=== PATIENT | female | born 2000 | race Caucasian/White ===

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

== ENCOUNTER 2018-02-09 16:27 | Outpatient (CLI) | END 2018-02-09 16:28 | disposition home or self-care (01) | LOC: CAR 16:27 | PROVIDERS: ATTEND Physician Assistant | DX: R42 Dizziness and giddiness (principal) | CPT/HCPCS: 93005; 93010 ==

== ENCOUNTER 2018-02-22 12:57 | Outpatient (CLI) ==
--- NOTE | 2018-02-25 12:12 | HOLTER ---
PATIENT INFORMATION AND COMMENTS Attending Physician: DEBRA COLLIER APRN Indications: DIZZINESS __ Patient Medications: CONTROL SHOTS __ Pre-procedure Summary: Protocol: Standard Heart Rate Started: 02/22/18 1322 Minimum: 47 BPM Weight: 245 LBS Ended: 02/23/18 1322 Maximum: 154 BPM Height: 66" Duration: 24 HOURS Average: 83 BPM _ INTERPRETATIONS/OBSERVATIONS: 1. BASIC RHYTHM: SINUS, RATE 47 BPM TO 150 BPM, AVERAGE 80 BPM 2. RARE PAC'S AND PVC'S 3. TWO SHORT RUNS OF PAT/SVT--4 TO [address]-T WAVE CHANGES FROM BASELINE 5. ACTIVITY LOG-- NO CORRELATION WITH DIZZINESS MTDD
== END 2018-02-22 12:58 | disposition home or self-care (01) ==
LOC: CAR 12:57
PROVIDERS: ATTEND Physician Assistant
DX: R42 Dizziness and giddiness (principal)
CPT/HCPCS: 93227

== ENCOUNTER 2018-07-17 22:27 | Emergency (ER) ==
[2018-07-17 22:40] VITALS: BP 150/88; TEMP 98.8; BMI 42.3
[2018-07-17] MEDS ORDERED: DECADRON 4 MG/ML SDV IM STA (22:48)
[2018-07-17] MEDS ORDERED: BENADRYL IM STA (22:48)
--- NOTE | 2018-07-17 22:51 | ED.PDOC ---
General ED Provider: Dr. ERASMO MANUEL-ER Chief Complaint: Rash Stated Complaint: jorgito got this rash Time Seen by Physician: 22:49 Mode of Arrival: Walk-In Information Source: Patient Exam Limitations: No limitations Primary Care Provider: SHANTEL SANTILLAN Nursing and Triage Documentation Reviewed and Agree: Yes Does patient meet sepsis criteria?: No System Inflammatory Response Syndrome: Not Applicable Sepsis Protocol: For patient's 13 years and over: Temp is 96.8 and below OR 101 and greater Pulse >90 BPM Resp >20/minute Acutely Altered Mental Status Are patient's symptoms suggestive of a new infection, such as: -Pneumonia -Skin, Soft Tissue -Endocarditis -UTI -Bone, Joint Infection -Implantable Device -Acute Abdominal Infection -Wound Infection -Meningitis -Blood Stream Catheter Infection -Unknown Skin Complaint Exam - Skin Rash/Itching Complaint/Exam Onset/Duration: a few hours Symptoms Are: Still present Initial Severity: Mild Current Severity: Mild Location: arms and anterior thighs Potential Exposures: Reports: Unknown Aggravating: Reports: None Alleviating: Reports: None Associated Signs and Symptoms: Denies: Difficulty breathing, Fever, Chills Skin Findings: Present: Lesions Differential Diagnoses: Other Review of Systems - Review Of Systems Constitutional: Reports: No symptoms Eyes: Reports: No symptoms Ears, Nose, Mouth, Throat: Reports: No symptoms Respiratory: Reports: No symptoms Cardiac: Reports: No symptoms GI: Reports: No symptoms : Reports: No symptoms Musculoskeletal: Reports: No symptoms Skin: Reports: Rash Neurological: Reports: No symptoms Endocrine: Reports: No symptoms Hematologic/Lymphatic: Reports: No symptoms All Other Systems: Reviewed and Negative Past Medical History - Past Medical History Previously Healthy: Yes Endocrine: Reports: None Cardiovascular: Reports: None Respiratory: Reports: None Hematological: Reports: None Gastrointestinal: Reports: GERD Genitourinary: Reports: None Neuro/Psych: Reports: None Musculoskeletal: Reports: Arthritis Cancer: Reports: None Last Menstrual Period: DOES NOT HAVE, TAKES DEPO SHOT - Surgical History General Surgical History: Reports: Tubal ligation - Family History Family History: Reports: Unknown - Social History Smoking Status: Never smoker Hx Substance Use: No Alcohol Screening: None - Immunizations Tetanus Shot up to Date: Yes Physical Exam - Physical Exam Appearance: Well-appearing, No pain distress, Well-nourished Eyes: TORSTEN, EOMI, Conjunctiva clear ENT: Ears normal, Nose normal, Oropharynx normal Neck: Supple Respiratory: Airway patent Cardiovascular: RRR, Pulses normal, No rub, No murmur GI/: Soft, Nontender, No masses, Bowel sounds normal, No Organomegaly Musculoskeletal: Normal strength, ROM intact, No edema, No calf tenderness Skin: Warm, Dry, Normal color Neurological: Sensation intact, Motor intact, Reflexes intact, Cranial nerves intact, Alert, Oriented Psychiatric: Affect appropriate, Mood appropriate Critical Care Note - Critical Care Note Total Time (mins): 0 Course - Course Orders, Labs, Meds: Orders Category Date Time Status Dexamethasone 4 mg/ml Inj [Decadron 4 mg/ml Sdv] MEDS 07/17/18 22:48 Stat 4 mg IM ONCE STA Diphenhydramine Inj [Benadryl] MEDS 07/17/18 22:48 Stat 50 mg IM ONCE STA Medications Generic Name Dose Route Start Last Admin Trade Name Freq PRN Reason Stop Dose Admin Dexamethasone Sodium Phosphate 4 mg 07/17/18 22:48 Decadron 4 Mg/Ml Sdv IM 07/17/18 22:49 ONCE STA Diphenhydramine HCl 50 mg 07/17/18 22:48 Benadryl IM 07/17/18 22:49 ONCE STA Vital Signs: Temp Pulse Resp BP Pulse Ox 07/17/18 22:27 98.8 F 89 20 150/88 H 99 Departure - Departure Time of Disposition: 22:51 Disposition: HOME SELF-CARE Discharge Problem: Rash and nonspecific skin eruption Instructions: Acute Rash (ED) Condition: Good Pt referred to PMD for follow-up: No IPMP verified?: No Additional Instructions: medrol dose pack---elimite cream ---after shower apply from the chin to the toes and leave on for 16hrs and wash off--f/u with pcp if no relief---can use benadryl q 4hrs prn itching with the above tx Allergies/Adverse Reactions: Allergies No Known Allergies Allergy (Verified 07/17/18 22:38) Home Medications: Ambulatory Orders Ranitidine HCl [Heartburn Relief] 150 mg PO BID PRN 01/02/17 Medroxyprogesterone Acetate [Depo-Provera] 150 mg IM DIRECTED 08/10/17 Metoprolol Tartrate 25 mg PO DAILY 07/17/18 Disposition Discussed With: Patient
== END 2018-07-17 23:25 | disposition home or self-care (01) ==
LOC: ED 22:27
DX: R21 Rash and other nonspecific skin eruption (principal)
CPT/HCPCS: 96372; 99282

== ENCOUNTER 2018-09-21 09:20 | Outpatient (CLI) ==
--- NOTE | 2018-09-21 10:08 | US ---
EXAM: THYROID ULTRASOUND HISTORY: Goiter FINDINGS: Ultrasound thyroid. Real time joiner-scale ultrasound and color Doppler imaging. COMPARISON: None Right lobe measures 4.3 x 1.2 x 1.4 cm. Isthmus measures 0.4 cm. Left lobe measures 4.4 x 1.1 x 1.5 cm. The thyroid tissue is slightly heterogeneous and mildly hyperemic. There is a tiny 3 mm cyst of the upper medial left lobe. Questionable 5 mm solid nodule mid left lobe. IMPRESSION: 1. Mildly prominent slightly heterogeneous and mildly hyperemic gland with sub centimeter left-sided nodules suspected. Consider follow-up ultrasound in 1 year.
== END 2018-09-21 09:21 | disposition home or self-care (01) ==
LOC: RAD 09:20
PROVIDERS: ATTEND Nurse Practitioner Family
DX: Z86.39 Personal history of other endocrine, nutritional and metabolic disease (principal)

== ENCOUNTER 2018-12-21 11:17 | Outpatient (POV) ==
[2018-12-11 23:11] VITALS: BMI 43.0
== END 2018-12-21 17:00 ==
LOC: OUTPT 11:17
PROVIDERS: ATTEND Otolaryngology
DX: H69.80 Other specified disorders of Eustachian tube, unspecified ear (principal)